=== PATIENT | male | born 1940 | race Caucasian/White ===

== ENCOUNTER 2017-12-08 18:49 | Emergency (ER) | payer OTHER ==
[~2017-12-08] VITALS: Ht 188 cm; Wt 108.9 kg
[~2017-12-08 18:49] MED LIST: ACID CONTROL75 MG PO; ADULT LOW DOSE81 MG PO; AMARYL4 MG PO; AMBIEN 5 MG TABL5 M1 PO; AMOXICILLIN 50500 MG PO; ASPIR 8181 MG PO; ASPIRIN EC81 M1 PO; ATORVASTATIN CA40 MG PO; CARDIZEM CD240 MG PO; CARDIZEM CD360 MG PO; CARVEDILOL25 MG PO; CLEOCIN HCL300 MG PO; COUMADIN 3 MG TA3 M1 PO; DILTIAZEM 24HR240 M1 PO; FISH OIL 1,001000 M1 PO; FISH OIL 1,001000 MG PO; FUROSEMIDE 40 M40 M1 PO; GEMFIBROZIL 60600 MG PO; GLUCOPHAGE1000 MG PO; HYDROCODON-ACE1 EAC7 PO; HYDROCODON-ACE1 EAC8 PO; IRON325 PO; LOSARTAN-HCTZ1 EACH PO; MAXZIDE-25 MG1 EACH PO; NOVOLIN 70100 UNIT/5 SUBQ; PERCOCET 5-3251 EACH PO; PLAVIX 75 MG TA75 M1 PO; POTASSIUM99 M1 PO; POTASSIUM99 MG PO; PROTONIX40 M2 PO; REGLAN 10 MG TA10 MG PO; STOOL SOFTENER250 MG PO; TRAMADOL 50 MG50 MG PO; TUMS PO; XARELTO20 MG PO; ZOFRAN ODT4 MG PO; ZOFRAN4 MG PO; ZOFRAN8 MG PO
[2017-12-08] MEDS ORDERED: DILTIAZEM 24HR120 M2 PO (19:24)
[2017-12-08] MEDS ORDERED: NOVOLOG100 UNIT/1 SUBQ (19:25)
[2017-12-08] MEDS ORDERED: COUMADIN 5 MG TA5 M1 PO (19:26)
[2017-12-08] MEDS ORDERED: PROTONIX40 M1 PO (19:26)
[2017-12-08 19:54] LABS: ABSOLUTE BASOPHILS 0.1 thou/uL (0.0-0.2); ABSOLUTE EOSINOPHILS 0.1 thou/uL (0.0-0.7); ABSOLUTE LYMPHOCYTES 1.2 thou/uL (0.8-5.3); ABSOLUTE MONOCYTES 0.6 thou/uL (0.0-1.2); ABSOLUTE NEUTROPHILS 6.1 thou/uL (1.6-8.1); BASOPHILS 0.8 %; EOSINOPHILS 1.8 %; HEMATOCRIT 39.1 % (42.0-52.0); HEMOGLOBIN 12.3 gm/dL (14.0-18.0); LYMPHOCYTES 14.3 %; MCH 25.2 pg (26.0-34.0); MCHC 31.4 g/dL (28.0-37.0); MCV 80.4 fL (80.0-100.0); MPV 8.9 fl. (7.2-11.1); NUCLEATED RBCS 0 /100WBC; PLATELET COUNT* 192 thou/uL (150-400); POLYS 75.1 %; RBC 4.86 mil/uL (4.50-6.00); RDW-CV 18.1 % (10.5-14.5); WBC 8.1 thou/uL (4.0-11.0)
[2017-12-08 20:06] LABS: PROTIME 66.2 Seconds (9.20-11.50)
[2017-12-08 20:16] LABS: CALCIUM 8.4 mg/dL (8.5-10.1); CREATININE 1.8 mg/dL (0.6-1.3); POTASSIUM 4.4 mmol/L (3.5-5.1)
[2017-12-08 20:21] LABS: ALBUMIN 3.6 g/dL (3.4-5.0); TOTAL BILIRUBIN 0.5 mg/dL (<0.1-1.0); TOTAL PROTEIN 7.6 g/dL (6.4-8.2)
[2017-12-08 21:08] LABS: URINE BILIRUBIN NEGATIVE (Negative); URINE BLOOD NEGATIVE (Negative); URINE CLARITY CLEAR; URINE COLOR YELLOW; URINE GLUCOSE-RANDOM 3+ (Negative); URINE KETONES NEGATIVE (Negative); URINE LEUKOCYTES-REFLEX NEGATIVE (Negative); URINE NITRITE-REFLEX NEGATIVE (Negative); URINE PROTEIN NEGATIVE (Negative); URINE SPECIFIC GRAVITY 1.015 (1.005-1.030); URINE UROBILINOGEN 0.2 E.U./dl (0.2-1.0)
[2017-12-08 22:15] VITALS: BP 122/80
--- NOTE | 2017-12-09 20:14 | EKG ---
[place] [address] ELECTROCARDIOGRAM REPORT Name: MATHIEU DUVALL Room: [facility]#: [id number] Admission: 12/08/17 Attend Phys: Discharge: 12/08/17 Date of : 36 Report #: [id number] THIS REPORT FOR: //name// [facility] ED Test Date: 2017-12-08 Test Time: 19:29:34 Pat Name: MATHIEU DUVALL Department: Room: Gender: M Clerk Television Production: SHAUN Chance : 1940 Requested By: Laura Hernandez Order Number: [id number] MD: Curt Armas Measurements Intervals [place] Rate: 93 P: CO: QRS: -14 QRSD: 90 T: 125 QT: 377 QTc: 469 Interpretive Statements Atrial fibrillation Probable anterior infarct, old Abnormal T, consider ischemia, lateral leads Compared to ECG 09/13/2017 09:56:48 ST (T wave) deviation no longer present Myocardial infarct finding still present T-wave abnormality still present Possible ischemia still present Electronically Signed On 12-09-2017 20:14:04 REHEATER HELPER by Curt Armas [email or web address] <ELECTRONICALLY SIGNED> By: Curt Armas MD, FACC 12/09/172013 28 28 Curt Armas MD, FAC /EPI
== END 2017-12-08 22:16 | disposition home or self-care (01) ==
LOC: M.ERS 18:49
PROVIDERS: Emergency Medicine
DX: R79.1 Abnormal coagulation profile (principal); N28.9 Disorder of kidney and ureter, unspecified; E11.9 Type 2 diabetes mellitus without complications; I10 Essential (primary) hypertension; E78.00 Pure hypercholesterolemia, unspecified; G51.0 Bell's palsy; Z90.49 Acquired absence of other specified parts of digestive tract; Z98.890 Other specified postprocedural states; Z87.891 Personal history of nicotine dependence; Z79.4 Long term (current) use of insulin

== ENCOUNTER 2018-10-27 12:26 | Inpatient (IN) | payer OTHER ==
[~2018-10-27] VITALS: Ht 177.8 cm; Wt 125.6 kg
[~2018-10-27 12:26] MED LIST changes: +COUMADIN 5 MG TA5 M1 PO; +DILTIAZEM 24HR120 M2 PO; +NOVOLOG100 UNIT/1 SUBQ; +PROTONIX40 M1 PO
[2018-10-27 12:27] VITALS: BP 116/58
[2018-10-27] MEDS ORDERED: COUMADIN 4 MG TA4 M1 PO (12:36)
[2018-10-27] MEDS ORDERED: KLOR-CON 1010 MEQ PO (12:36)
[2018-10-27] MEDS ORDERED: ASPIR 8181 MG PO (12:36)
[2018-10-27] MEDS ORDERED: LASIX 40 MG TAB40 M2 PO (12:37)
[2018-10-27] MEDS ORDERED: IRON325 PO (12:38)
[2018-10-27] MEDS ORDERED: COZAAR 25 MG TA25 M1 PO (12:38)
[2018-10-27] MEDS ORDERED: NAPROSYN500 MG PO (12:39)
[2018-10-27 12:53] LABS: ABSOLUTE BASOPHILS 0.1 thou/uL (0.0-0.2); ABSOLUTE EOSINOPHILS 0.2 thou/uL (0.0-0.7); ABSOLUTE LYMPHOCYTES 1.5 thou/uL (0.8-5.3); ABSOLUTE MONOCYTES 0.8 thou/uL (0.0-1.2); ABSOLUTE NEUTROPHILS 8.7 thou/uL (1.6-8.1); BASOPHILS 0.9 %; HEMATOCRIT 41.9 % (42.0-52.0); HEMOGLOBIN 13.3 gm/dL (14.0-18.0); LYMPHOCYTES 13.6 %; MCH 25.5 pg (26.0-34.0); MCHC 31.9 g/dL (28.0-37.0); MCV 79.9 fL (80.0-100.0); MONOCYTES 6.7 %; MPV 8.7 fl. (7.2-11.1); NUCLEATED RBCS 0 /100WBC; PLATELET COUNT* 206 thou/uL (150-400); POLYS 76.8 %; RBC 5.24 mil/uL (4.50-6.00); WBC 11.3 thou/uL (4.0-11.0)
[2018-10-27 13:02] LABS: INR 2.2; PROTIME 22.4 Seconds (9.20-11.50)
[2018-10-27 13:06] LABS: ANION GAP 12 mmol/L (7-16); BUN 20 mg/dL (7-18); CALCIUM 8.7 mg/dL (8.5-10.1); CHLORIDE 102 mmol/L (98-107); CO2 28 mmol/L (21-32); CREATININE 1.7 mg/dL (0.6-1.3); GLUCOSE 105 mg/dL (70-99); POTASSIUM 3.6 mmol/L (3.5-5.1); SODIUM 142 mmol/L (136-145)
[2018-10-27 13:14] LABS: ALBUMIN 3.3 g/dL (3.4-5.0); ALKALINE PHOSPHATASE 152 U/L (46-116); SGOT 18 U/L (15-37); SGPT 18 U/L (30-65); TOTAL BILIRUBIN 0.5 mg/dL (<0.1-1.0); TOTAL PROTEIN 7.8 g/dL (6.4-8.2); TROPONIN-I LEVEL <0.06 ng/mL (<0.06)
[2018-10-27 16:49] VITALS: BP 124/65
[2018-10-27 17:15] VITALS: BP 142/62
--- NOTE | 2018-10-27 18:18 | EKG ---
[place] [address] ELECTROCARDIOGRAM REPORT Name: MATHIEU DUVALL Room: [address] ADM IN .R.#: [id number] Admission: 10/27/18 Attend Phys: Gia Pacheco MD Discharge: Date of : 36 Report #: [id number] THIS REPORT FOR: //name// [facility] ED Test Date: 2018-10-27 Test Time: 12:40:21 Pat Name: MATHIEU DUVALL Department: Room: [facility] Gender: Quality Analyst/Technical Writer: Meron LOGAN : 1940 Requested By: Luis Falcon Order Number: [id number] MD: Curt Arams Measurements Intervals [place] Rate: 62 P: [place]: QRS: -13 QRSD: 95 T: 141 QT: 430 QTc: 437 Interpretive Statements Atrial fibrillation Delayed R-wave progression Abnormal T, consider ischemia, lateral leads Compared to ECG 12/08/2017 19:29:34 No significant changes Electronically Signed On 10-27-2018 18:17:46 STATISTICIAN MATHEMATICAL by Curt Armas [email or web address] <ELECTRONICALLY SIGNED> By: Curt Armas MD, FACC 10/27/18 1817 1240 1240 Curt Armas MD, FAC /EPI
[2018-10-27 20:00] VITALS: BP 154/70
[2018-10-27] MEDS ORDERED: DILTIAZEM HCL120 M1 PO (20:41)
[2018-10-27] MEDS ORDERED: LEVEMIR SUBQ (20:42)
[2018-10-27 23:07] VITALS: BP 131/47
[2018-10-28 03:30] VITALS: BP 125/56
[2018-10-28 05:17] LABS: HEMATOCRIT 39.4 % (42.0-52.0); HEMOGLOBIN 12.5 gm/dL (14.0-18.0); MCH 25.4 pg (26.0-34.0); MCHC 31.6 g/dL (28.0-37.0); MCV 80.4 fL (80.0-100.0); MPV 9.7 fl. (7.2-11.1); RBC 4.9 mil/uL (4.50-6.00); RDW-CV 18.9 % (10.5-14.5); WBC 9.6 thou/uL (4.0-11.0)
[2018-10-28 05:26] LABS: CALCIUM 8.5 mg/dL (8.5-10.1); CREATININE 1.6 mg/dL (0.6-1.3); MAGNESIUM 2.2 mg/dL (1.8-2.4); POTASSIUM 4.4 mmol/L (3.5-5.1)
[2018-10-28 05:27] LABS: PROTIME 20.7 Seconds (9.20-11.50)
[2018-10-28 08:40] VITALS: BP 128/70
[2018-10-28 12:16] VITALS: BP 139/52
[2018-10-28] MEDS ORDERED: KEPPRA 500 MG500 M1 PO (13:52)
[2018-10-28 15:05] VITALS: BP 139/52
[2018-10-28 15:30] VITALS: BP 139/52
[2018-10-28 15:58] VITALS: BP 114/69
--- NOTE | 2018-10-30 14:00 | CON ---
[address] [address] CONSULTATION Name: ELOINAMATHIEU Indira Room: [address] IN M.R.#: [id number] Admission: 10/27/18 Attend Phys: Gia Pacheco MD Discharge: 10/28/18 Date of : 36 Report #: [id number] THIS REPORT FOR: //name// CC: Gia Apple DATE OF SERVICE: 10/27/2018 HISTORY OF PRESENT ILLNESS: This is an 78-year-old male patient who was evaluated by me for a seizure. The patient is an extremely poor historian. He says he does not remember anything about the seizure. Family witnessed a seizure and it was apparently grand mal seizure. He is a diabetic. He does not know what his blood sugar was when it happened. One of the records indicates his blood sugar was 60. He had some trouble with oxygen desaturation, but he has stabilized. He may have had another seizure a few weeks ago, but he does not provide any history. REVIEW OF SYSTEMS: Positive for diabetes, hypertension, Drake's palsy, cataract surgery, gallbladder surgery, pancreatitis, vasectomy, heart palpitation and he is very hard of hearing. He had seizures, but how many of them were related to hypoglycemia is not clear. REVIEW OF SYSTEMS: A 14-point review of system was carried out, but this patient is not able to provide a very good 14-point review of system. He is apparently on a blood thinner, but I do not know any good indication from him. He just does not provide a very good history. His speech is not very good, but I suspect that is his baseline, that is the best I can get from him. He denies any new eye, ENT, cardiac, respiratory, GI, , musculoskeletal, constitutional, dermatological, hematological, psychiatric, throat, allergic symptom associated with present symptomatology. PAST MEDICAL HISTORY: Question of some seizure in the past. FAMILY HISTORY: Negative for any early age stroke. SOCIAL HISTORY: He says he does not drink any alcohol. PHYSICAL EXAMINATION: The patient's examination indicate he is alert. He is responsive. He can follow simple commands. His speech looks slurred, but I do not know what his baseline is. His memory and fund of knowledge is somewhat diminished, but then it is difficult to tell what his baseline is. His cranial nerve examination 2-12 was attempted. I do not think there is any gross abnormality. He moves all four extremities. Reflexes are absent and he did not have any position sense in the lower extremities, but his cooperation was not very good. His tone looks symmetrical. He does not have any cerebellar sign. He did not cooperate with the fundus examination. [place] [address] CONSULTATION Name: ELOINAMATHIEU Indira Room: [address] IN .#: [id number] Admission: 10/27/18 Attend Phys: Gia Pacheco MD Discharge: 10/28/18 Date of : 36 Report #: [id number] does not have any dysmorphic features of eyes, ears and face. His hearing is impaired, but vision looks intact. His pulses could not be felt in the lower extremities and there may be some edema. Heart sounds are difficult to hear. He does have rhonchi on both sides, but does not appear to be in more short of breath. His blood pressure is 124/65, respirations 14, pulse is 67 and oxygen saturation is 99%. He did have a CT scan of the head that did not show any acute changes, but does demonstrate small vessel disease. His MRI is not done yet. IMPRESSION: Difficult to tell in this patient. He does appear to have seizure, but that may be hypoglycemic seizure. He needs further workup since history is very poor. His MRI and EEG is pending. We will see that. We will monitor his blood sugar around the clock. RECOMMENDATIONS: 1. MRI. 2. MRA. 3. EEG. 4. Monitoring of the blood sugar around the clock. 5. Await this workup and then decide about the management further. <ELECTRONICALLY SIGNED> By: Augusto Blackman MD 10/30/18 1400 1800 [id number] Blackman MD /nt
--- NOTE | 2018-10-30 14:00 | EEG ---
[address] [address] EEG STUDY REPORT Name: MATHIEU DUVALL Room: [address] IN .R.#: [id number] Admission: 10/27/18 Attend Phys: Gia Pacheco MD Discharge: 10/28/18 Date of : 36 Report #: [id number] THIS REPORT FOR: //name// CC: Gia Apple DATE OF SERVICE: 10/28/2018 This patient is being evaluated for seizures. EEG was done by placing the electrodes by standard 10-20 system of electrode placement. Both referential and sequential montages were used for recording. Background activity in this patient's EEG is about 8-9 Hz and 30 microvolt. The patient went to sleep that is associated with bilateral symmetrical slowing and vertex sharp waves. Photic stimulation is unremarkable. Throughout the records, no active epileptiform activity was noticed. IMPRESSION: This patient's EEG is intermixed with theta range slowing on both sides. That is a nonspecific abnormality, which can occur with encephalopathy, effect of psychotropic medication, dementia, etc. Clinical correlation is recommended. <ELECTRONICALLY SIGNED> By: Augusto Blackman MD 10/30/18 1400 1009 1120Parantonio Blackman MD /nt
== END 2018-10-28 18:05 | disposition home or self-care (01) | DRG 100 ==
LOC: M.ERS 12:26 → M.TBA-ER 14:23 → M.2W 17:01
PROVIDERS: Emergency Medicine Emergency Medical Services; ADMIT Internal Medicine
DX: G40.409 Other generalized epilepsy and epileptic syndromes, not intractable, without status epilepticus (principal); G93.41 Metabolic encephalopathy; I12.9 Hypertensive chronic kidney disease with stage 1 through stage 4 chronic kidney disease, or unspecified chronic kidney disease; N18.3 Chronic kidney disease, stage 3 (moderate); G51.0 Bell's palsy; E78.00 Pure hypercholesterolemia, unspecified; E11.22 Type 2 diabetes mellitus with diabetic chronic kidney disease; H91.91 Unspecified hearing loss, right ear; Z86.73 Personal history of transient ischemic attack (TIA), and cerebral infarction without residual deficits; Z90.49 Acquired absence of other specified parts of digestive tract; Z79.01 Long term (current) use of anticoagulants; Z79.82 Long term (current) use of aspirin; Z79.4 Long term (current) use of insulin; Z79.899 Other long term (current) drug therapy; Z83.3 Family history of diabetes mellitus

== ENCOUNTER 2019-01-25 14:32 | Inpatient (IN) | payer OTHER ==
[~2019-01-25] VITALS: Ht 188 cm; Wt 128.7 kg
[~2019-01-25 14:32] MED LIST changes: +COUMADIN 4 MG TA4 M1 PO; +COZAAR 25 MG TA25 M1 PO; +DILTIAZEM HCL120 M1 PO; +KEPPRA 500 MG500 M1 PO; +KLOR-CON 1010 MEQ PO; +LASIX 40 MG TAB40 M2 PO; +LEVEMIR SUBQ; +NAPROSYN500 MG PO
[2019-01-25 16:45] VITALS: BP 142/66
[2019-01-25 18:29] LABS: ABSOLUTE BASOPHILS 0.1 thou/uL (0.0-0.2); ABSOLUTE EOSINOPHILS 0.3 thou/uL (0.0-0.7); ABSOLUTE MONOCYTES 0.8 thou/uL (0.0-1.2); ABSOLUTE NEUTROPHILS 6.7 thou/uL (1.6-8.1); BASOPHILS 0.6 %; HEMATOCRIT 36.6 % (42.0-52.0); HEMOGLOBIN 11.7 gm/dL (14.0-18.0); LYMPHOCYTES 11.6 %; MCH 24.6 pg (26.0-34.0); MCV 77.1 fL (80.0-100.0); MONOCYTES 9.4 %; MPV 8.9 fl. (7.2-11.1); NUCLEATED RBCS 0 /100WBC; PLATELET COUNT* 231 thou/uL (150-400); POLYS 75.4 %; RBC 4.75 mil/uL (4.50-6.00); RDW-CV 18.2 % (10.5-14.5); WBC 8.8 thou/uL (4.0-11.0)
[2019-01-25 18:35] LABS: INR 2.1; PROTIME 21.1 Seconds (9.20-11.50)
[2019-01-25 18:40] LABS: ALBUMIN 3.1 g/dL (3.4-5.0); CALCIUM 8.5 mg/dL (8.5-10.1); MAGNESIUM 1.9 mg/dL (1.8-2.4); POTASSIUM 4.3 mmol/L (3.5-5.1); TOTAL BILIRUBIN 0.6 mg/dL (<0.1-1.0); TOTAL PROTEIN 7.8 g/dL (6.4-8.2)
[2019-01-25 20:00] VITALS: BP 138/52
[2019-01-26] VITALS: BP 142/77
[2019-01-26 05:00] VITALS: BP 109/67
[2019-01-26 05:03] LABS: ABSOLUTE BASOPHILS 0.1 thou/uL (0.0-0.2); ABSOLUTE EOSINOPHILS 0.3 thou/uL (0.0-0.7); ABSOLUTE LYMPHOCYTES 0.9 thou/uL (0.8-5.3); ABSOLUTE MONOCYTES 0.9 thou/uL (0.0-1.2); ABSOLUTE NEUTROPHILS 6.3 thou/uL (1.6-8.1); EOSINOPHILS 3.3 %; HEMATOCRIT 35.5 % (42.0-52.0); HEMOGLOBIN 11.4 gm/dL (14.0-18.0); LYMPHOCYTES 11.1 %; MCH 24.5 pg (26.0-34.0); MCHC 32.1 g/dL (28.0-37.0); MCV 76.4 fL (80.0-100.0); MONOCYTES 10.3 %; NUCLEATED RBCS 0 /100WBC; PLATELET COUNT* 237 thou/uL (150-400); POLYS 74.3 %; RBC 4.65 mil/uL (4.50-6.00); RDW-CV 18.3 % (10.5-14.5); WBC 8.5 thou/uL (4.0-11.0)
[2019-01-26 05:29] LABS: CALCIUM 8.5 mg/dL (8.5-10.1); CREATININE 1.7 mg/dL (0.6-1.3)
[2019-01-26 05:33] LABS: % SATURATION 7 % (20-39); IRON 22 ug/dL (50-175)
[2019-01-26 06:18] LABS: URINE BILIRUBIN NEGATIVE (Negative); URINE BLOOD TRACE (Negative); URINE CLARITY CLEAR; URINE COLOR YELLOW; URINE GLUCOSE-RANDOM NEGATIVE (Negative); URINE KETONES NEGATIVE (Negative); URINE LEUKOCYTES-REFLEX NEGATIVE (Negative); URINE NITRITE-REFLEX NEGATIVE (Negative); URINE PROTEIN NEGATIVE (Negative); URINE UROBILINOGEN 0.2 E.U./dl (0.2-1.0)
[2019-01-26 08:00] VITALS: BP 129/69
[2019-01-26 16:00] VITALS: BP 99/37
[2019-01-26 20:00] VITALS: BP 128/69
[2019-01-27] VITALS: BP 121/54
[2019-01-27 02:07] LABS: GLYCOHEMOGLOBIN (HGB A1C) 8.6 % (4.8-5.6)
[2019-01-27 04:00] VITALS: BP 111/55
[2019-01-27 04:52] LABS: ABSOLUTE BASOPHILS 0.1 thou/uL (0.0-0.2); ABSOLUTE EOSINOPHILS 0.4 thou/uL (0.0-0.7); ABSOLUTE LYMPHOCYTES 1.1 thou/uL (0.8-5.3); ABSOLUTE MONOCYTES 0.8 thou/uL (0.0-1.2); BASOPHILS 0.9 %; EOSINOPHILS 5.2 %; HEMOGLOBIN 11.3 gm/dL (14.0-18.0); LYMPHOCYTES 14.8 %; MCH 24.8 pg (26.0-34.0); MCHC 32.4 g/dL (28.0-37.0); MCV 76.7 fL (80.0-100.0); MONOCYTES 11.4 %; MPV 8.6 fl. (7.2-11.1); NUCLEATED RBCS 0 /100WBC; PLATELET COUNT* 221 thou/uL (150-400); POLYS 67.7 %; RBC 4.56 mil/uL (4.50-6.00); RDW-CV 18.2 % (10.5-14.5); WBC 7.4 thou/uL (4.0-11.0)
[2019-01-27 05:15] LABS: CALCIUM 8.3 mg/dL (8.5-10.1); POTASSIUM 3.9 mmol/L (3.5-5.1)
[2019-01-27 05:22] LABS: CREATININE 1.5 mg/dL (0.6-1.3)
[2019-01-27 08:00] VITALS: BP 120/66
[2019-01-27] MEDS ORDERED: KEFLEX500 M1 PO (09:39)
[2019-01-27 16:34] LABS: MAGNESIUM 2.1 mg/dL (1.8-2.4); PHOSPHORUS* 3.4 mg/dL (2.5-4.9)
[2019-01-27 20:00] VITALS: BP 113/55
[2019-01-28] VITALS: BP 118/50
[2019-01-28 04:00] VITALS: BP 131/67
[2019-01-28 08:00] VITALS: BP 153/79
[2019-01-28 12:00] VITALS: BP 134/63
[2019-01-28 16:00] VITALS: BP 123/48
[2019-01-28 20:00] VITALS: BP 136/74
[2019-01-29] VITALS: BP 107/63
[2019-01-29 04:00] VITALS: BP 127/65
--- NOTE | 2019-01-29 07:43 | CON ---
[address] [address] CONSULTATION Name: MATHIEU DUVALL Room: [address] IN M.R.#: [id number] Admission: 01/25/19 Attend Phys: Sergio Stevens MD Discharge: Date of : 36 Report #: [id number] THIS REPORT FOR: //name// CC: Renita Stevens DATE OF SERVICE: 01/26/2019 INFECTIOUS DISEASE CONSULTATION ATTENDING PHYSICIAN: Dr. Stevens. REASON FOR EVALUATION: Bilateral lower extremity inflammatory eruption, likely multifactorial with a component of skin and soft tissue infection with cellulitis, also has multiple wounds that are likely focally infected as well. HISTORY OF PRESENT ILLNESS: Chart reviewed, patient examined. This is an 78-year-old, with extensive medical history, diabetes mellitus type 2, has been complicated by vasculopathy, has known previous strokes, seizure disorder, cardiomyopathy, who is not a great historian. He does state issues with his legs including swelling, often has pain dating back several years, most recently in October 2018, developed multiple sites of wound. 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 Denies significant pulmonary or gastrointestinal related complaints. His appetite has been somewhat marginal, not reporting fevers, empirically started on antimicrobials with ceftriaxone. ALLERGIES: None known. MEDICATIONS: Include ferrous sulfate, zinc, multivitamin, losartan, aspirin, warfarin, pantoprazole, insulin, ascorbic acid, levetiracetam, diltiazem, atorvastatin, ceftriaxone, furosemide. 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 SOCIAL HISTORY: Nonsmoker, no ethanol. FAMILY HISTORY: Noncontributory. REVIEW OF SYSTEMS: Otherwise, unremarkable 10-point review of systems except noted in the [place] [address] CONSULTATION Name: MATHIEU DUVALL Room: [address]#: [id number] Admission: 01/25/19 Attend Phys: Sergio Stevens MD Discharge: Date of : 36 Report #: [id number] PHYSICAL EXAMINATION: GENERAL: He is in moderate distress at this point. He appears to have some hearing deficits. Speech has been impaired as well. He is chronically ill appearing, undernourished, unkempt. VITAL SIGNS: Temperature 97.6, pulse 85, respirations 18, blood pressure 129/69. SKIN: Warm, dry. HEENT: Extensive malave. Normocephalic. Extraocular muscles intact. NECK: Supple. LUNGS: Diminished breath sounds. Few scattered crackles at the bases. HEART: Regular, does have a soft systolic murmur. It is distant. ABDOMEN: Obese, soft, nontender. There are no peritoneal signs. EXTREMITIES: Bilateral lower extremities have multiple lesions consistent with picking as was described many of eschars or excoriation. There is moderate degree of inflammation noted throughout the lower extremities to below the knee, somewhat diminished palpable pulses. He is tender to palpation over the areas. There is another larger wound on the right lower extremity. GENITOURINARY: Deferred. RECTAL: Deferred. LABORATORY DATA: Blood cultures sterile thus far. Arterial Doppler, monophasic waveforms are present in the right lower extremity in the mid superficial femoral artery distally. There is blood flow to the ankle via the dorsalis pedis and posterior tibial artery. Urinalysis unremarkable. No proteinuria. Electrolytes: Sodium 142, potassium 4.0, chloride 105, bicarbonate is 30, anion gap of 7, BUN and creatinine 22 and 1.7. CBC: White count of 8.5, H and H 11.4 and 35.5 and platelets of 237. NT-pro brain natriuretic peptide elevated at 2300. TSH 1.824. Lactic acid 1.3. PT of 21.1, INR of 2.1. Liver functions, alkaline phosphatase of 151. Total protein 7.8, albumin of 3.1. Chest x-ray, no acute process. ASSESSMENT: Bilateral lower extremity inflammatory eruption, certainly can exclude infectious component. I do not think that is the totality of it, has venous stasis insufficiency with dermatitis, has multiple ulcers certainly at risk with his habitual picking. Continue the ceftriaxone. Covering and compressing the wounds seem to give him some benefit, noted vascular is watchful waiting type approach. At this point, I think, try to optimize his nutritional care. Monitor expectantly for other types of complications as related to hospitalization including pneumonitis. Start incentive spirometry. <ELECTRONICALLY SIGNED> By: Toño Ivory MD 01/29/19 0743 1241 0523Jocoby Ivory MD /nt
[2019-01-29 08:11] VITALS: BP 122/73
[2019-01-29 10:50] LABS: CALCIUM 8.3 mg/dL (8.5-10.1); CREATININE 1.4 mg/dL (0.6-1.3); POTASSIUM 4.3 mmol/L (3.5-5.1)
[2019-01-29 12:17] VITALS: BP 130/72
[2019-01-29 16:57] VITALS: BP 128/75
--- NOTE | 2019-01-29 17:05 | 2DMMODE ---
[place] [address] 2 D/M-MODE ECHOCARDIOGRAM Name: ELOINAMATHIEU Indira Room: [address] IN .R.#: [id number] Admission: 01/25/19 Attend Phys: Sergio Stevens MD Discharge: Date of : 36 Date of Service: 01/29/19 1705 Report #: [id number] THIS REPORT FOR: //name// APPROVED REPORT Study performed: 01/29/2019 14:06:39 EXAM: Comprehensive 2D, Doppler, and color-flow Echocardiogram Patient Location: Bedside BSA: 2.54 HR: 74 bpm BP: 130/72 mmHg Other Information Study Quality: Fair Indications Aortic Valve Disease Congestive Heart Failure 2D Dimensions IVSd: 17.75 (7-11mm) LVOT Diam: 16.23 (18-24mm) LVDd: 41.31 mm PWd: 11.29 (7-11mm) Ascending Ao: 34.50 (22-36mm) LVDs: 28.06 (25-40mm) Aortic Root: 28.23 mm Volumes Left Atrial Volume (Systole) LA ESV Index: 29.80 mL/m2 Aortic Valve AoV Peak Renzo.: 3.96 m/s AO Peak Gr.: 62.73 mmHg LVOT Max P.57 mmHg AO Mean Gr.: 38.67 mmHg LVOT Mean P.27 mmHg LVOT Max V: 0.80 m/s AO V2 VTI: 82.58 cm LVOT Mean V: 0.52 m/s JERICA (VTI): 0.47 cm2 LVOT V1 VTI: 18.83 cm Mitral Valve MV Mean Gr.: 3.12 mmHg E/A Ratio: 4.97 MV Decel. Time: 207.19 ms MV E Max Renzo.: 1.43 m/s MV PHT: 60.09 [place] [address] 2 D/M-MODE ECHOCARDIOGRAM Name: MATHIEU DUVALL Room: [address] IN [facility]#: [id number] Admission: 01/25/19 Attend Phys: Sergio Stevens MD Discharge: Date of : 36 Date of Service: 01/29/19 1705 Report #: [id number] MVA (PHT): 3.66 cm2 TDI E/Lateral E': 28.60 E/Medial E': 17.88 Medial E' Renzo.: 0.08 m/s Lateral E' Renzo.: 0.05 m/s Pulmonary Valve PV Peak Renzo.: 0.95 m/s PV Peak Gr.: 3.64 mmHg Tricuspid Valve RAP Estimate: 20.00 mmHg TR Peak Gr.: 56.19 mmHg RVSP: 76.19 mmHg PA Pressure: 76.19 mmHg Left Ventricle The left ventricle is normal size. There is normal LV segmental wall motion. Mild concentric left ventricular hypertrophy. Left ventricular systolic function is normal. The left ventricular ejection fraction is within the normal range. LVEF is 60-65%. Right Ventricle The right ventricle is normal size. The right ventricular systolic function is normal. Atria Left atrium is mildly dilated. The right atrium size is normal. Aortic Valve The Aortic valve is sclerotic. No aortic regurgitation is present. Moderate to severe aortic stenosis. Mitral Valve There is mitral annular calcification. Mitral valve leaflets are mildly thickened. Mild mitral regurgitation. Borderline mitral stenosis. Tricuspid Valve The tricuspid valve is normal in structure. Moderate tricuspid regurgitation. estimate pa pressure 60 mm hg Pulmonic Valve Pulmonic valve is not well visualized. There is no pulmon[place] [address] 2 D/M-MODE ECHOCARDIOGRAM Name: MATHIEU DUVALL Room: [address]#: [id number] Admission: 01/25/19 Attend Phys: Sergio Stevens MD Discharge: Date of : 36 Date of Service: 01/29/19 1705 Report #: [id number] Great Vessels The aortic root is normal in size. IVC is dilated. Pericardium There is no pericardial effusion. <Conclusion> Mild concentric left ventricular hypertrophy. LVEF is 60-65%. Left atrium is mildly dilated. Moderate to severe aortic stenosis. Mild mitral regurgitation. Moderate tricuspid regurgitation. estimate pa pressure 60 mm hg <ELECTRONICALLY SIGNED> By: Cameron Ballard MD, FACC 01/29/191704 04 04 Cameron Ballard MD, FACC /INF
[2019-01-29 19:15] VITALS: BP 120/65
[2019-01-30] VITALS (20 sets, daily range): BP systolic 23–151; BP diastolic 63–83
[2019-01-30 05:03] LABS: CALCIUM 8.5 mg/dL (8.5-10.1); CREATININE 1.5 mg/dL (0.6-1.3); POTASSIUM 4.3 mmol/L (3.5-5.1)
[2019-01-30 05:04] LABS: INR 1.5; PROTIME 14.9 Seconds (9.20-11.50)
--- NOTE | 2019-01-30 17:25 | CON ---
[address] [address] CONSULTATION Name: MATHIEU DUVALL Room: [address] IN M.R.#: [id number] Admission: 01/25/19 Attend Phys: Sergio Stevens MD Discharge: Date of : 36 Report #: [id number] THIS REPORT FOR: //name// CC: Renita Betts DATE OF SERVICE: 01/28/2019 HISTORY OF PRENSENT ILLNESS: The patient is an 78-year-old single white male who I was asked to see in the hospital today after he was noted to have a wide complex tachycardia. The patient apparently was seen by my partner, Dr. Armas, back in 2012. He was noted to be in atrial fibrillation. Dr. Armas recommended anticoagulation with Xarelto and rate control with diltiazem. The patient has a long history of hypertension, diabetes. He was seen by Dr. Davis here at [facility] in 2017 after he had a seizure. He was noted to be in atrial fibrillation at that time. The patient apparently has been noncompliant, has not been following up in the office and had refused anticoagulation. He was actually just admitted here to [facility] on 01/25 from his primary care physician's office. He had redness of his legs with ulcers and felt to have cellulitis. He was admitted for treatment. On the monitor, the patient noted to have wide complex tachycardia. I was asked to see him for further evaluation and treatment. He denies a history of chest pain, shortness of breath, palpitations. He has been on warfarin. Denies any bleeding. PAST MEDICAL HISTORY: Significant for cholecystectomy, hypertension, diabetes. MEDICATIONS: On admission included insulin, warfarin, aspirin, potassium, Lasix, losartan, diltiazem, insulin, metformin. FAMILY HISTORY: His mother had heart disease. SOCIAL HISTORY: He is , lives with a daughter. Ambulates with a walker. He quit smoking years ago. Does drink alcohol occasionally. REVIEW OF SYSTEMS: He is overweight, being 6 feet 2 inches, weighing 290 pounds. He has a history of Drake palsy. No history of asthma, peptic ulcer disease, liver disease, kidney disease, cancer, psychiatric illness. PHYSICAL EXAMINATION: GENERAL: Revealed a large, elderly male, lying in bed, appeared in no acute distress. VITAL SIGNS: He had a blood pressure of 150/80, pulse 80. He is afebrile. HEENT: He is anicteric. Conjunctivae pink. Mucous membranes are dry. NECK: Veins cannot be assessed due to large malave. CHEST: [place] [address] CONSULTATION Name: MATHIEU DUVALL Room: [address] IN [facility]#: [id number] Admission: 01/25/19 Attend Phys: Sergio Stevens MD Discharge: Date of : 36 Report #: [id number] CARDIOVASCULAR: Irregular rhythm, grade 2 systolic ejection murmur. ABDOMEN: Obese. EXTREMITIES: Had trace edema. SKIN: Cool and dry. NEUROLOGIC: Nonfocal. The patient actually had an echocardiogram in 2016 that showed ejection fraction 60%, left ventricular hypertrophy, moderate aortic stenosis with a peak gradient across the aortic valve at that time of 40 mmHg. His x-rays, the patient had portable chest x-ray on admission, 01/25, that showed cardiomegaly, no other acute abnormalities. Lower extremity arterial study after his admission showed arterial occlusive disease, monophasic waveforms with occlusion of the left posterior tibial artery. CT scan of the head without contrast in October after a seizure showed no acute abnormality, small vessel disease and atrophy. LABORATORY DATA: Sodium 142, creatinine 1.5, glucose 69. His BNP 2302. Previous LDL 132, TSH 1.8. His INR is 2.1. His hemoglobin 11.3. IMPRESSION AND RECOMMENDATIONS: 1. Atrial fibrillation. Noted to be chronic. Rate controlled with a calcium venu. I would continue anticoagulation, maintain an INR of 2-3. 2. Episode of nonsustained ventricular tachycardia. Noted to be 10 beats. We would not recommend treatment at this time. No history of syncope or cardiomyopathy. 3. Hypertension. Blood pressure appears controlled on an ARB and calcium venu. 4. Diabetes. 5. Obesity. 6. Cellulitis. The patient on antibiotics. 7. Peripheral arterial disease. 8. Chronic kidney disease. <ELECTRONICALLY SIGNED> By: Cameron Ballard MD, FACC 01/30/19 1725 1035 [id number] javier Ballard MD, FACC /nt
[2019-01-31 04:00] VITALS: BP 123/66
[2019-01-31 05:41] LABS: ABSOLUTE BASOPHILS 0.1 thou/uL (0.0-0.2); ABSOLUTE EOSINOPHILS 0.3 thou/uL (0.0-0.7); ABSOLUTE MONOCYTES 0.9 thou/uL (0.0-1.2); ABSOLUTE NEUTROPHILS 6.5 thou/uL (1.6-8.1); BASOPHILS 0.8 %; HEMOGLOBIN 11.3 gm/dL (14.0-18.0); LYMPHOCYTES 11.8 %; MCH 24.4 pg (26.0-34.0); MCHC 31.5 g/dL (28.0-37.0); MCV 77.6 fL (80.0-100.0); MONOCYTES 9.8 %; MPV 8.7 fl. (7.2-11.1); NUCLEATED RBCS 0 /100WBC; PLATELET COUNT* 237 thou/uL (150-400); POLYS 73.6 %; RBC 4.64 mil/uL (4.50-6.00); RDW-CV 18.3 % (10.5-14.5); WBC 8.8 thou/uL (4.0-11.0)
[2019-01-31 06:02] LABS: CALCIUM 8.7 mg/dL (8.5-10.1); CREATININE 1.2 mg/dL (0.6-1.3); POTASSIUM 4.2 mmol/L (3.5-5.1)
[2019-01-31 08:00] VITALS: BP 131/78
--- NOTE | 2019-01-31 08:06 | OP ---
[address] [address] OPERATIVE REPORT Name: ELOINAMATHIEU L Room: [address] IN .R.#: [id number] Admission: 01/25/19 Attend Phys: Sergio Stevens MD Discharge: Date of : 36 Report #: [id number] THIS REPORT FOR: //name// CC: Renita Stevens DATE OF SERVICE: 01/30/2019 PREOPERATIVE DIAGNOSIS: Critical left lower extremity ischemia. POSTOPERATIVE DIAGNOSIS: Critical left lower extremity ischemia. OPERATION: 1. Ultrasound-guided access to the right common femoral artery. 2. Aortoiliofemoral angiogram. 3. Third order selective left lower extremity angiogram. 4. Left superficial femoral and popliteal artery angioplasty. 5. Left anterior tibial artery angioplasty. SURGEON: Christiano Christina DO. VOICE SYSTEMS ENGINEER: ____ PGY2 and DANTE Domingo. ANESTHESIA: Sedation with local. ESTIMATED BLOOD LOSS: 25 mL. FLUIDS: 100 of crystalloid. URINE OUTPUT: None. SPECIMENS: None. COMPLICATIONS: None. FINDINGS: He had right common femoral artery with some mild posterior wall plaque, but suitable for access on ultrasound. Initial aortogram demonstrated patent bilateral renal arteries, infrarenal aorta, bilateral common internal and external iliac arteries were patent with just some mild atherosclerotic disease. Patent left common femoral, deep femoral artery without significant stenosis. He had moderate to moderately severe kind of diffuse stenosis of the left SFA with a focal high-grade stenosis in the mid portion. The left popliteal artery was patent with some moderate to moderately severe atherosclerotic disease. His anterior tibial was the main runoff into the foot. 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 His anterior tibial artery had moderately severe stenosis in the proximal portion just past its origin. [address] [address] OPERATIVE REPORT Name: MATHIEU DUVALL Room: [address]#: [id number] Admission: 01/25/19 Attend Phys: Sergio Stevens MD Discharge: Date of : 38 Report #: [id number] Following angioplasty of the SFA, popliteal and anterior tibial artery had much improved inline flow into the foot with some minimal residual stenosis. CLINICAL HISTORY: The patient is an 78-year-old man with known severe peripheral vascular disease and left lower extremity wounds. He is in need of revascularization for limb salvage and wound healing. DETAILS OF PROCEDURE: After informed consent was obtained, the patient taken to the angio suite and placed on the angio bed in supine position. He was administered sedation by the nurse at my discretion. This was for a total of 45 minutes monitoring all vital signs appropriately. Using ultrasound guidance, the right common femoral artery was identified and was accessed with micropuncture needle. These ultrasound images were preserved. Using Seldinger technique, a microwire and microsheath were placed, ultimately upsized to a 6-Ghanaian sheath over a J-wire. Exchanged out for a flush catheter and a Bentson wire passed into the infrarenal aorta and performed aortoiliofemoral angiogram with findings noted above. Obtained up and over access across the bifurcation, positioned the catheter in the left common femoral artery and performed selective left lower extremity angiogram with findings noted above. At this point, I administered 8000 units of intravenous heparin and exchanged out for a Glidewire Advantage and 6-Ghanaian up and over sheath. I used a combination of Glidewire Advantage and seeker catheter and I was able to navigate the wire down into the true lumen into the anterior tibial artery. Followup imaging confirmed intraluminal position. At this point, I then serial angioplastied the SFA and popliteal artery in its entirety with a 5 mm Ultraverse balloon through multiple inflations for 2 minutes at a time. Following this, I then angioplastied the anterior tibial artery with a 3 mm Ultraverse balloon. Following this, I then performed completion angiogram, which demonstrated excellent inline flow through the anterior tibial artery into the foot. Satisfied with the result, the wire and sheath were backed into the right external iliac artery, exchanged out for a short 6-Ghanaian sheath. I deployed a 6-Ghanaian Mynx closure device in standard fashion, partially reversed the heparin with 50 mg of protamine. Manual pressure was held for 5 minutes. Once hemostasis was ensured, sterile dressing was applied. All sponge, sharp and instrument counts were reported as correct x 2. He tolerated the procedure well and was transferred back to his room in stable condition. <ELECTRONICALLY SIGNED> By: Christiano Christina DO 01/31/19 0806 0924 [id number] Christina DO /nt
[2019-01-31 08:07] LABS: CHOLESTEROL 76 mg/dL (<200); HDL CHOLESTEROL 30 mg/dL (>40); LDL CHOLESTEROL 30 mg/dL (<100); TC:HDL 2.5 Ratio (Not establshd); TRIGLYCERIDE 83 mg/dL (<150); VLDL 17 mg/dL (<40)
[2019-01-31 08:15] LABS: SERUM ASSESSMENT Clear
[2019-01-31 12:00] VITALS: BP 134/76
[2019-01-31 16:00] VITALS: BP 119/87
== END 2019-01-31 18:38 | disposition home health service (06) | DRG 628 ==
LOC: M.2W 14:32
PROVIDERS: Internal Medicine; Internal Medicine Cardiovascular Disease; Physician Assistant Surgical; Registered Nurse; ADMIT Family Medicine
DX: E11.622 Type 2 diabetes mellitus with other skin ulcer (principal); I50.33 Acute on chronic diastolic (congestive) heart failure; J96.90 Respiratory failure, unspecified, unspecified whether with hypoxia or hypercapnia; L03.116 Cellulitis of left lower limb; I42.9 Cardiomyopathy, unspecified; I47.2 Ventricular tachycardia; I13.0 Hypertensive heart and chronic kidney disease with heart failure and stage 1 through stage 4 chronic kidney disease, or unspecified chronic kidney disease; L03.115 Cellulitis of right lower limb; N17.0 Acute kidney failure with tubular necrosis; E11.51 Type 2 diabetes mellitus with diabetic peripheral angiopathy without gangrene; E78.00 Pure hypercholesterolemia, unspecified; I87.2 Venous insufficiency (chronic) (peripheral); I70.213 Atherosclerosis of native arteries of extremities with intermittent claudication, bilateral legs; I48.2 Chronic atrial fibrillation; G51.0 Bell's palsy; I35.0 Nonrheumatic aortic (valve) stenosis; E11.65 Type 2 diabetes mellitus with hyperglycemia; L98.499 Non-pressure chronic ulcer of skin of other sites with unspecified severity; D50.9 Iron deficiency anemia, unspecified; G40.909 Epilepsy, unspecified, not intractable, without status epilepticus; H91.91 Unspecified hearing loss, right ear; N18.3 Chronic kidney disease, stage 3 (moderate); E11.22 Type 2 diabetes mellitus with diabetic chronic kidney disease; E66.9 Obesity, unspecified; Z68.36 Body mass index [BMI] 36.0-36.9, adult; Z86.73 Personal history of transient ischemic attack (TIA), and cerebral infarction without residual deficits; Z98.42 Cataract extraction status, left eye; Z98.41 Cataract extraction status, right eye; Z87.891 Personal history of nicotine dependence; Z90.49 Acquired absence of other specified parts of digestive tract; Z79.01 Long term (current) use of anticoagulants; Z79.82 Long term (current) use of aspirin; Z79.899 Other long term (current) drug therapy; Z82.49 Family history of ischemic heart disease and other diseases of the circulatory system; Z83.3 Family history of diabetes mellitus; Z28.21 Immunization not carried out because of patient refusal

== ENCOUNTER → 2019-02-23 | Outpatient (CLI) | payer OTHER ==
[~2019-02-23] MED LIST changes: +KEFLEX500 M1 PO
== END ==
LOC: M.RAD 02-22 14:00
DX: R13.12 Dysphagia, oropharyngeal phase (principal)

== ENCOUNTER 2019-07-20 19:51 | Emergency (ER) | payer OTHER ==
[~2019-07-20] VITALS: Ht 188 cm; Wt 122.9 kg
[2019-07-20 20:00] VITALS: BP 136/58
[2019-07-20] MEDS ORDERED: MELATONIN1 MG PO (20:06)
== END 2019-07-20 20:20 | disposition home or self-care (01) ==
LOC: M.ERS 19:51
DX: E11.65 Type 2 diabetes mellitus with hyperglycemia (principal); I10 Essential (primary) hypertension; G51.0 Bell's palsy; E78.00 Pure hypercholesterolemia, unspecified; Z90.49 Acquired absence of other specified parts of digestive tract; Z98.52 Vasectomy status; Z87.891 Personal history of nicotine dependence

== ENCOUNTER 2019-12-04 15:15 | Inpatient (IN) | payer MEDICARE ==
[~2019-12-04] VITALS: Ht 182.9 cm; Wt 138.3 kg
[~2019-12-04 15:15] MED LIST changes: +MELATONIN1 MG PO
[2019-12-04 15:20] VITALS: BP 123/68
[2019-12-04 15:54] LABS: PCO2 32.6 mmHg (35.0-45.0); pH 7.371 (7.340-7.450)
[2019-12-04 15:54] LABS: ABSOLUTE BASOPHILS 0.1 thou/uL (0.0-0.2); ABSOLUTE LYMPHOCYTES 0.7 thou/uL (0.8-5.3); ABSOLUTE MONOCYTES 0.8 thou/uL (0.0-1.2); ABSOLUTE NEUTROPHILS 7.2 thou/uL (1.6-8.1); BASOPHILS 0.7 %; EOSINOPHILS 0.1 %; HEMATOCRIT 26.1 % (42.0-52.0); HEMOGLOBIN 7.8 gm/dL (14.0-18.0); LYMPHOCYTES 8.1 %; MCH 18.9 pg (26.0-34.0); MONOCYTES 9.4 %; MPV 9.4 fl. (7.2-11.1); NUCLEATED RBCS 2 /100WBC; PLATELET COUNT* 244 thou/uL (150-400); POLYS 81.7 %; RBC 4.15 mil/uL (4.50-6.00); RDW-CV 20.2 % (10.5-14.5); WBC 8.8 thou/uL (4.0-11.0)
[2019-12-04 15:57] LABS: PO2 159.3 mmHg (75.0-100.0)
[2019-12-04 16:05] LABS: CALCIUM 8.4 mg/dL (8.5-10.1); POTASSIUM 5.8 mmol/L (3.5-5.1)
[2019-12-04 16:19] LABS: ALBUMIN 3.4 g/dL (3.4-5.0); MAGNESIUM 2.2 mg/dL (1.8-2.4); TOTAL BILIRUBIN 0.6 mg/dL (<0.1-1.0); TOTAL PROTEIN 7.8 g/dL (6.4-8.2)
[2019-12-04 17:27] LABS: HYPOCHROMASIA 3+; MICROCYTES 3+; OVALOCYTES 1+; PLATELET ESTIMATE ADEQUATE; POLYCHROMASIA Occasional
[2019-12-04 17:28] LABS: ANISOCYTOSIS 2+; TARGET CELLS Occasional
[2019-12-04 18:32] LABS: APTT 44.3 Seconds (25.0-31.3); PROTIME 130.2 Seconds (9.20-11.50)
[2019-12-04 20:30] VITALS: BP 133/78
[2019-12-04 21:38] VITALS: BP 133/62
[2019-12-04 22:10] LABS: HEMATOCRIT 26.3 % (42.0-52.0); HEMOGLOBIN 7.8 gm/dL (14.0-18.0)
[2019-12-04 22:12] LABS: CALCIUM 8.1 mg/dL (8.5-10.1); CREATININE 2.9 mg/dL (0.6-1.3); POTASSIUM 5.8 mmol/L (3.5-5.1)
[2019-12-04 23:39] LABS: CALCIUM 8.2 mg/dL (8.5-10.1); CREATININE 2.8 mg/dL (0.6-1.3); POTASSIUM 5.5 mmol/L (3.5-5.1)
[2019-12-05] VITALS: BP 132/66
[2019-12-05 02:05] LABS: URINE BILIRUBIN NEGATIVE (Negative); URINE BLOOD 3+ (Negative); URINE CLARITY SL CLOUDY; URINE COLOR YELLOW; URINE GLUCOSE-RANDOM NEGATIVE (Negative); URINE KETONES TRACE (Negative); URINE LEUKOCYTES-REFLEX NEGATIVE (Negative); URINE NITRITE-REFLEX NEGATIVE (Negative); URINE PROTEIN 3+ (Negative); URINE SPECIFIC GRAVITY >= 1.030 (1.005-1.030); URINE UROBILINOGEN 0.2 E.U./dl (0.2-1.0)
[2019-12-05 02:46] LABS: URINE POTASSIUM-RANDOM 54.1 mmol/L
[2019-12-05 03:17] LABS: CASTS None Seen /LPF (None Seen); SQUAMOUS 4-10 Moderate /LPF (0-3)
[2019-12-05 03:18] LABS: BACTERIA-REFLEX >30 Many /HPF (None Seen); URINE RBC >20 Many /HPF (0-2); URINE WBC-REFLEX 0-5 Rare /HPF (0-5)
[2019-12-05 03:19] LABS: AMORPHOUS URATES Moderate /LPF (None Seen)
[2019-12-05 04:43] VITALS: BP 116/57
[2019-12-05 07:26] LABS: PROTIME 208.3 Seconds (9.20-11.50)
[2019-12-05 07:34] LABS: INR > 18.0
[2019-12-05 11:26] VITALS: BP 98/55
--- NOTE | 2019-12-05 12:24 | 2DMMODE ---
[place] [address] 2 D/M-MODE ECHOCARDIOGRAM Name: MATHIEU DUVALL Indira Room: [address] IN [facility]#: [id number] Admission: 12/04/19 Attend Phys: Mitchel Cowan, Discharge: Date of : 36 Date of Service: 12/05/19 1223 Report #: [id number] THIS REPORT FOR: cc: FAM - No family physician/PCP FAM - No family physician/PCP Kadeem Zee MD [facility] ~ APPROVED REPORT Study performed: 12/05/2019 10:56:55 EXAM: Comprehensive 2D, Doppler, and color-flow Echocardiogram Patient Location: In-Patient Room #: [facility] Status: routine BSA: 2.51 HR: 82 bpm BP: 116/57 mmHg Rhythm: NSR Other Information Study Quality: Good Indications Dyspnea 2D Dimensions IVSd: 13.18 (7-11mm) LVOT Diam: 21.18 (18-24mm) LVDd: 44.01 mm PWd: 12.30 (7-11mm) Ascending Ao: 35.95 (22-36mm) LVDs: 26.62 (25-40mm) Aortic Root: 33.57 mm Volumes Left Atrial Volume (Systole) LA ESV Index: 35.80 mL/m2 Aortic Valve AoV Peak Renzo.: 3.26 m/s AO Peak Gr.: 42.49 mmHg LVOT Max P.02 mmHg AO Mean Gr.: 26.78 mmHg LVOT Mean P.54 mmHg LVOT Max V: 0.87 m/s AO V2 VTI: 61.64 cm LVOT Mean V: 0.58 m/s JERICA (VTI): 1.04 cm2 LVOT V1 VTI: 18.17 [place] [address] 2 D/M-MODE ECHOCARDIOGRAM Name: MATHIEU DUVALL Room: [address]#: [id number] Admission: 12/04/19 Attend Phys: Mitchel Cowan, Discharge: Date of : 38 Date of Service: 12/05/19 1223 Report #: [id number] Mitral Valve MV Decel. Time: 240.48 ms MV PHT: 69.74 ms MVA (PHT): 3.15 cm2 TDI Medial E' Renzo.: 0.10 m/s Lateral E' Renzo.: 0.12 m/s Pulmonary Valve PV Peak Renzo.: 0.97 m/s PV Peak Gr.: 3.79 mmHg Tricuspid Valve RAP Estimate: 5.00 mmHg TR Peak Gr.: 40.86 mmHg RVSP: 45.00 mmHg PA Pressure: 45.00 mmHg Left Ventricle The left ventricle is normal size. There is normal LV segmental wall motion. Mild concentric left ventricular hypertrophy. Left ventricular systolic function is normal. The left ventricular ejection fraction is within the normal range. LVEF is 55-60%. This study is not technically sufficient to allow evaluation of the LV diastolic function due to atrial fibrillation. Right Ventricle Right ventricle is mildly dilated. The right ventricular systolic function is normal. Atria Left atrium is mildly dilated. Right atrium is at the upper limits of normal. Aortic Valve Moderate aortic valve sclerosis. No aortic regurgitation is present. Moderate aortic stenosis. Mitral Valve Moderate mitral annular calcification. Mild mitral regurgitation. No evidence of mitral valve stenosis. Tricuspid Valve The tricuspid valve is normal in structure. Mild tricuspid regurgitation. Moderate pulmonary hypertension[place] [address] 2 D/M-MODE ECHOCARDIOGRAM Name: MATHIEU DUVALL Indira Room: [address]#: [id number] Admission: 12/04/19 Attend Phys: Mitchel Cowan, Discharge: Date of : 38 Date of Service: 12/05/19 1223 Report #: [id number] The pulmonary valve is normal in structure. Trace pulmonic regurgitation. Great Vessels The aortic root is normal in size. IVC is normal in size and collapses >50% with inspiration. Pericardium There is no pericardial effusion. <Conclusion> The left ventricle is normal size. Mild concentric left ventricular hypertrophy. Left ventricular systolic function is normal. The left ventricular ejection fraction is within the normal range. LVEF is 55-60%. This study is not technically sufficient to allow evaluation of the LV diastolic function due to atrial fibrillation. Right ventricle is mildly dilated. Left atrium is mildly dilated. Right atrium is at the upper limits of normal. Moderate aortic valve sclerosis. No aortic regurgitation is present. Moderate aortic stenosis. Moderate mitral annular calcification. Mild mitral regurgitation. No evidence of mitral valve stenosis. The tricuspid valve is normal in structure. Mild tricuspid regurgitation. Moderate pulmonary hypertension. IVC is normal in size and collapses >50% with inspiration. There is no pericardial effusion. There is normal LV segmental wall motion. <ELECTRONICALLY SIGNED> By: Kadeem Zee MD, FACC 12/05/19 1223 1223 122 Kadeem Zee MD, FACC /INF
--- NOTE | 2019-12-05 13:57 | EKG ---
[place] [address] ELECTROCARDIOGRAM REPORT Name: MATHIEU DUVALL Room: [address] IN [facility]#: [id number] Admission: 12/04/19 Attend Phys: Mitchel Cowan, Discharge: Date of : 36 Date of Service: 12/04/19 1530 Report #: [id number] THIS REPORT FOR: cc: FAM - No family physician/PCP FAM - No family physician/PCP Kadeem Zee MD [facility] THIS REPORT FOR: //name// [facility] ED Test Date: 2019-12-04 Test Time: 15:30:54 Pat Name: MATHIEU DUVALL Department: Room: [address] Gender: M Coatings Inspector: [facility] : 1940 Requested By: Mitchel Cowan Order Number: [id number] Reading MD: Kadeem Zee Measurements Intervals [place] Rate: 87 P: VA: QRS: 25 QRSD: 87 T: 57 QT: 365 QTc: 439 Interpretive Statements Atrial fibrillation Low voltage, extremity leads Compared to ECG 02/05/2019 17:49:18 Low QRS voltage now present Ventricular premature complex(es) no longer present Myocardial infarct finding no longer present T-wave abnormality no longer present Electronically Signed On 12-05-2019 9:55:56 MOTOR DRIVER by Kadeem Zee [email or web address] <ELECTRONICALLY SIGNED> By: Kadeem Zee MD, [facility] 12/05/19 0955 1530 1530 Kadeem Zee MD, [facility] /EPI
[2019-12-05 16:53] VITALS: BP 107/57
[2019-12-05 20:07] VITALS: BP 107/50
[2019-12-06] VITALS: BP 129/67
[2019-12-06 04:00] VITALS: BP 131/68
[2019-12-06 05:43] LABS: ABSOLUTE BASOPHILS 0.1 thou/uL (0.0-0.2); ABSOLUTE EOSINOPHILS 0.1 thou/uL (0.0-0.7); ABSOLUTE MONOCYTES 1.1 thou/uL (0.0-1.2); ABSOLUTE NEUTROPHILS 7.8 thou/uL (1.6-8.1); BASOPHILS 1.2 %; EOSINOPHILS 1.4 %; HEMATOCRIT 25.1 % (42.0-52.0); HEMOGLOBIN 7.4 gm/dL (14.0-18.0); LYMPHOCYTES 9.4 %; MCH 18.4 pg (26.0-34.0); MCHC 29.3 g/dL (28.0-37.0); MCV 62.9 fL (80.0-100.0); MONOCYTES 11.3 %; NUCLEATED RBCS 3 /100WBC; PLATELET COUNT* 217 thou/uL (150-400); POLYS 76.7 %; RBC 3.99 mil/uL (4.50-6.00); RDW-CV 20.1 % (10.5-14.5); WBC 10.1 thou/uL (4.0-11.0)
[2019-12-06 05:53] LABS: CREATININE 2.8 mg/dL (0.6-1.3); POTASSIUM 4.7 mmol/L (3.5-5.1)
[2019-12-06 05:55] LABS: PROTIME 42.2 Seconds (9.20-11.50)
[2019-12-06 05:59] LABS: INR 4.3
[2019-12-06 07:00] LABS: HYPOCHROMASIA 3+; MICROCYTES 2+; OVALOCYTES 2+; PLATELET ESTIMATE ADEQUATE; POLYCHROMASIA Occasional
[2019-12-06 07:02] LABS: ANISOCYTOSIS 2+; POIKILOCYTOSIS 2+
[2019-12-06 08:28] VITALS: BP 138/72
[2019-12-06 12:23] VITALS: BP 128/64
[2019-12-06 16:17] VITALS: BP 123/67
[2019-12-06 20:15] VITALS: BP 113/54
[2019-12-07 00:17] VITALS: BP 123/72
[2019-12-07 04:30] VITALS: BP 131/73
[2019-12-07 05:27] LABS: PROTIME 24.5 Seconds (9.20-11.50)
[2019-12-07 05:35] LABS: CALCIUM 7.9 mg/dL (8.5-10.1); CREATININE 2.5 mg/dL (0.6-1.3); MAGNESIUM 2.4 mg/dL (1.8-2.4); POTASSIUM 4.8 mmol/L (3.5-5.1)
[2019-12-07 05:48] LABS: INR 2.5
[2019-12-07 20:41] VITALS: BP 124/71
[2019-12-08 04:45] LABS: INR 2.7; PROTIME 26.3 Seconds (9.20-11.50)
[2019-12-08 04:50] LABS: CREATININE 2.1 mg/dL (0.6-1.3); MAGNESIUM 2.3 mg/dL (1.8-2.4); POTASSIUM 4.9 mmol/L (3.5-5.1)
[2019-12-08 21:00] VITALS: BP 138/80
[2019-12-09] VITALS: BP 132/71
[2019-12-09 05:12] LABS: CALCIUM 7.8 mg/dL (8.5-10.1); CREATININE 1.8 mg/dL (0.6-1.3); MAGNESIUM 2.1 mg/dL (1.8-2.4); POTASSIUM 4.3 mmol/L (3.5-5.1)
[2019-12-09 05:14] LABS: INR 2.3; PROTIME 23.1 Seconds (9.20-11.50)
[2019-12-09 08:20] VITALS: BP 138/65
[2019-12-09 15:53] VITALS: BP 135/77
[2019-12-09 21:00] VITALS: BP 130/56
[2019-12-10 03:30] VITALS: BP 137/76
[2019-12-10 04:36] LABS: CALCIUM 7.7 mg/dL (8.5-10.1); CREATININE 1.9 mg/dL (0.6-1.3); MAGNESIUM 2.2 mg/dL (1.8-2.4)
[2019-12-10 04:54] LABS: POTASSIUM 4.9 mmol/L (3.5-5.1)
[2019-12-10 07:48] VITALS: BP 145/87
[2019-12-10 10:41] LABS: BE -2.4 mmol/L (-2 to +3); PCO2 42.3 mmHg (35.0-45.0); PO2 103.6 mmHg (75.0-100.0); pH 7.354 (7.340-7.450)
[2019-12-10 20:35] VITALS: BP 134/76
[2019-12-11 06:17] LABS: HEMATOCRIT 26.9 % (42.0-52.0); HEMOGLOBIN 7.9 gm/dL (14.0-18.0); MCH 19.6 pg (26.0-34.0); MCHC 29.3 g/dL (28.0-37.0); MCV 66.9 fL (80.0-100.0); MPV 8.6 fl. (7.2-11.1); RBC 4.02 mil/uL (4.50-6.00); RDW-CV 20.9 % (10.5-14.5)
[2019-12-11 06:31] LABS: INR 2.3; PROTIME 23.1 Seconds (9.20-11.50)
[2019-12-11 06:35] LABS: ALBUMIN 3.1 g/dL (3.4-5.0); CALCIUM 7.9 mg/dL (8.5-10.1); CREATININE 1.9 mg/dL (0.6-1.3); POTASSIUM 4.8 mmol/L (3.5-5.1); TOTAL BILIRUBIN 0.6 mg/dL (<0.1-1.0); TOTAL PROTEIN 7.2 g/dL (6.4-8.2)
[2019-12-11 09:41] VITALS: BP 138/72
[2019-12-11 16:00] VITALS: BP 146/58
[2019-12-11 19:47] VITALS: BP 132/78
[2019-12-12 04:55] LABS: INR 2.1; PROTIME 21.4 Seconds (9.20-11.50)
[2019-12-12 08:57] VITALS: BP 112/67
--- NOTE | 2019-12-12 10:24 | CON ---
[address] [address] CONSULTATION Name: MATHIEU DUVALL Indira Room: [address] IN .R.#: [id number] Admission: 12/04/19 Attend Phys: Mitchel Cowan MD Discharge: Date of : 36 Report #: [id number] THIS REPORT FOR: //name// cc: TRENA Marshall family physician/PCP TRENA Marshall family physician/PCP ~ THIS REPORT FOR: //name// CC: TRENA physician/PCP Mitchel Cowan DATE OF SERVICE: 12/05/2019 NEPHROLOGY CONSULTATION CONSULTING PHYSICIAN: Mitchel Cowan MD REASON FOR NEPHROLOGY CONSULTATION: Acute kidney injury on chronic kidney disease stage 3. REASON FOR ADMISSION: Nausea, vomiting, shortness of breath, diarrhea. HISTORY OF PRESENT ILLNESS: This is an 79-year-old male who is hard of hearing, not a very good historian but has past medical history of diabetes type 2, hypertension, atrial fibrillation, GERD who came in because of worsening shortness of breath for the past several days along with nausea and vomiting as well as some diarrhea and incontinence to stool. His potassium was 5.8 on arrival, his creatinine was 3.0 on arrival, his baseline creatinine is 1.55 and 1.6. At home, in addition to other medications, he takes losartan, potassium as well as Lasix. He was given a couple of liters of IV fluids. Creatinine has improved to 2.8 today. Potassium is down to 5.5. He is n.p.o. currently. He is still having dry heaving. He is not sure if he is taking NSAIDs or not. It is not on his home medication list. In addition to above, he also has evidence of hematuria and his INR is greater than 18. He takes Coumadin for atrial fibrillation. ALLERGIES: No known allergies. REVIEW OF SYSTEMS: As mentioned in the history of present illness, otherwise limited because he is not a very good historian. HOME MEDICATIONS: Include: 1. Keppra. 2. Atorvastatin. 3. Pantoprazole. 4. Coumadin. 5. [place] [address] CONSULTATION Name: MATHIEU DUVALL Room: [address]#: [id number] Admission: 12/04/19 Attend Phys: Mitchel Cowan MD Discharge: Date of : 38 Report #: [id number] 6. Potassium chloride 20 mEq twice a day. 7. Losartan 50 mg once a day. 8. Lasix 40 mg twice a day. 9. Diltiazem. 10. Metformin 1000 mg b.i.d. 11. Insulin detemir. 12. Insulin lispro. 13. Melatonin. PAST MEDICAL AND SURGICAL HISTORY: Includes: 1. Diabetes type 2. 2. Chronic kidney disease stage 3. Baseline creatinine 1.5-1.6. 3. Hypertension. 4. Seizures. 5. Drake's palsy. 6. Dyslipidemia. 7. He is deaf in right ear. 8. Palpitations. 9. Tonsillectomy. 10. Vasectomy. 11. Hernia repair. 12. Cataract surgery. 13. Gallbladder drain. 14. Pancreatitis. 15. Cholecystectomy. 16. Atrial fibrillation. FAMILY HISTORY: Family history of diabetes according to the patient's chart. SOCIAL HISTORY: Lives at home with his daughter. Does not smoke or drink alcohol or use illicit drugs. PHYSICAL EXAMINATION: VITAL SIGNS: His blood pressure was 116/57, pulse ox was on 3 liters of oxygen via nasal cannula 98%, temperature 36.7, pulse rate was 82, respiratory rate was 16. GENERAL: He is awake, alert and oriented x 3. HEAD AND EYES: Atraumatic, normocephalic. Normal conjunctivae. EARS, NOSE, AND THROAT: Normal ears and nose. Mucous membranes are dry. NECK: There is no JVD. CHEST: Shows bilaterally diminished breath sounds anteriorly, but there are no crackles anteriorly. No wheezing anteriorly. CARDIOVASCULAR: S1, S2 normal. No murmurs heard. ABDOMEN: Soft. It is obese, otherwise nondistended, nontender. Bowel sounds are decreased. EXTREMITIES: Lower extremities: He has chronic venous [place] [address] CONSULTATION Name: MATHIEU DUVALL Indira Room: [address] IN [facility]#: [id number] Admission: 12/04/19 Attend Phys: Mitchel Cowan MD Discharge: Date of : 38 Report #: [id number] is no pitting edema that I could see and the skin over his lower extremities is very dry and scaling present. NEUROLOGICAL FUNCTION: He has generalized weakness, but otherwise is able to move all his extremities. PSYCHIATRIC: Mood colvin, he seems to be normal. LABORATORY DATA: WBC is 8.8, hemoglobin is 7.8, platelet count is 244. Sodium is 139, potassium is 5.5 down from 5.8, creatinine is 2.8 down from 3.0. Iron saturation is 4%. INR is greater than 18. Other labs are reviewed. IMAGING: Chest x-ray was reviewed. ASSESSMENT: 1. Acute kidney injury on chronic kidney disease stage 3. Baseline creatinine is 1.5-1.6 and creatinine 3.0 on admission. Acute kidney injury in the setting of intravascular volume depletion, nausea, vomiting, use of Lasix and losartan at home. INR is greater than 18. He also has evidence of gross hematuria and there is a possibility of Coumadin nephropathy as well. Renal imaging is pending. 2. Hyperkalemia in the setting of acute renal insufficiency, potassium supplementation as well as ARB use. 3. Non-nephrotic range proteinuria, 2.26 grams, likely because of diabetes. 4. Nausea and vomiting. Etiology is not clear. Primary team is looking into that. 5. Iron deficiency anemia. He also has gross hematuria and supratherapeutic INR. 6. History of diabetes type 2. Metformin is on hold and primary team is managing his diabetes. 7. His ejection fraction back in January 2019 was 60-65% with RVSP of 60 mmHg. 8. Presumably interstitial atypical pneumonia, which is being treated with antibiotics as per primary team. 9. History of peripheral arterial disease. 10. History of atrial fibrillation, on Coumadin, which is currently on hold because of supratherapeutic INR. 11. Lactic acidosis. Lactate was 3.0 when he came in and 3.2 on most recent check yesterday evening. PLAN: 1. To me, he actually looks dry, normal saline 75 mL an hour. If he gets started on a diet, this should be a low-potassium diet. 2. So far, the renal function is improving with IV fluids. 3. We will hold off on doing serological workup right now. His urine should be checked once his INR has been reversed, which primary team is working on. 4. We will order renal imaging as well. 5. I have ordered IV iron for his iron deficiency anemia. Iron saturation is 4%. [place] [address] CONSULTATION Name: MATHIEU DUVALL Room: [address] IN ..#: [id number] Admission: 12/04/19 Attend Phys: Mitchel Cowan MD Discharge: Date of : 38 Report #: [id number] Try to maintain strict I's and O's. He has a Borrero catheter. Thank you for this consultation. We will continue to follow with you. Discussed with the patient and the patient's nurse. <ELECTRONICALLY SIGNED> By: Martina Valentin MD 12/12/19 1024 0822 [id number] Valentin MD /nt
[2019-12-13 06:00] LABS: CALCIUM 7.8 mg/dL (8.5-10.1); CREATININE 1.5 mg/dL (0.6-1.3); POTASSIUM 3.9 mmol/L (3.5-5.1)
[2019-12-13 06:03] LABS: INR 1.9; PROTIME 19.5 Seconds (9.20-11.50)
[2019-12-13 08:39] VITALS: BP 129/64
[2019-12-13 16:03] VITALS: BP 134/68
[2019-12-13 20:00] VITALS: BP 118/66
[2019-12-14 04:11] LABS: INR 1.9; PROTIME 19.2 Seconds (9.20-11.50)
[2019-12-14 04:12] LABS: CALCIUM 7.4 mg/dL (8.5-10.1); CREATININE 1.5 mg/dL (0.6-1.3); POTASSIUM 3.8 mmol/L (3.5-5.1)
[2019-12-14 08:00] VITALS: BP 135/63
[2019-12-14 21:25] VITALS: BP 146/86
[2019-12-15 04:17] LABS: PROTIME 20.3 Seconds (9.20-11.50)
[2019-12-15 04:24] LABS: CALCIUM 7.6 mg/dL (8.5-10.1); CREATININE 1.4 mg/dL (0.6-1.3); MAGNESIUM 2.1 mg/dL (1.8-2.4); POTASSIUM 4.1 mmol/L (3.5-5.1)
[2019-12-15 08:00] VITALS: BP 120/72
[2019-12-15 15:21] VITALS: BP 128/70
[2019-12-15 20:45] VITALS: BP 125/72
[2019-12-16 04:07] LABS: PROTIME 20.1 Seconds (9.20-11.50)
[2019-12-16 04:14] LABS: CALCIUM 7.8 mg/dL (8.5-10.1); CREATININE 1.3 mg/dL (0.6-1.3); MAGNESIUM 2.2 mg/dL (1.8-2.4); POTASSIUM 4.3 mmol/L (3.5-5.1)
[2019-12-16 08:00] VITALS: BP 122/68
[2019-12-16 16:39] VITALS: BP 121/78
[2019-12-17 04:09] LABS: INR 2.2; PROTIME 21.5 Seconds (9.20-11.50)
[2019-12-17 08:01] VITALS: BP 147/77
[2019-12-17 08:15] LABS: CALCIUM 7.8 mg/dL (8.5-10.1); CREATININE 1.4 mg/dL (0.6-1.3); MAGNESIUM 2.2 mg/dL (1.8-2.4); POTASSIUM 4.3 mmol/L (3.5-5.1)
[2019-12-17 16:06] VITALS: BP 141/73
[2019-12-18 03:55] LABS: ALBUMIN 2.7 g/dL (3.4-5.0); CREATININE 1.3 mg/dL (0.6-1.3); MAGNESIUM 2.1 mg/dL (1.8-2.4); TOTAL BILIRUBIN 0.6 mg/dL (<0.1-1.0); TOTAL PROTEIN 6.7 g/dL (6.4-8.2)
[2019-12-18 08:10] VITALS: BP 133/74
[2019-12-18 16:00] VITALS: BP 166/56
[2019-12-18 22:15] VITALS: BP 143/82
[2019-12-19] VITALS: BP 127/68
[2019-12-19 03:53] LABS: CALCIUM 8.2 mg/dL (8.5-10.1); CREATININE 1.3 mg/dL (0.6-1.3)
[2019-12-19 04:00] VITALS: BP 127/65
[2019-12-19 04:09] LABS: INR 2.4; PROTIME 23.6 Seconds (9.20-11.50)
[2019-12-19 09:22] LABS: ABSOLUTE BASOPHILS 0.1 thou/uL (0.0-0.2); ABSOLUTE EOSINOPHILS 0.3 thou/uL (0.0-0.7); ABSOLUTE MONOCYTES 0.5 thou/uL (0.0-1.2); ABSOLUTE NEUTROPHILS 3.3 thou/uL (1.6-8.1); BASOPHILS 2.6 %; EOSINOPHILS 5.1 %; HEMATOCRIT 29.9 % (42.0-52.0); HEMOGLOBIN 8.9 gm/dL (14.0-18.0); LYMPHOCYTES 19.4 %; MCH 20.8 pg (26.0-34.0); MCHC 29.7 g/dL (28.0-37.0); MCV 70.1 fL (80.0-100.0); MONOCYTES 9.9 %; NUCLEATED RBCS 0 /100WBC; PLATELET COUNT* 171 thou/uL (150-400); RBC 4.27 mil/uL (4.50-6.00); RDW-CV 32.7 % (10.5-14.5); WBC 5.3 thou/uL (4.0-11.0)
[2019-12-19 16:32] VITALS: BP 130/79
[2019-12-19 20:45] VITALS: BP 124/65
[2019-12-20 03:35] LABS: ABSOLUTE BASOPHILS 0.2 thou/uL (0.0-0.2); ABSOLUTE EOSINOPHILS 0.3 thou/uL (0.0-0.7); ABSOLUTE MONOCYTES 0.7 thou/uL (0.0-1.2); ABSOLUTE NEUTROPHILS 3.7 thou/uL (1.6-8.1); BASOPHILS 2.7 %; HEMATOCRIT 30.7 % (42.0-52.0); HEMOGLOBIN 9.2 gm/dL (14.0-18.0); MCHC 29.9 g/dL (28.0-37.0); MCV 70.2 fL (80.0-100.0); MONOCYTES 11.6 %; MPV 9.2 fl. (7.2-11.1); NUCLEATED RBCS 0 /100WBC; PLATELET COUNT* 176 thou/uL (150-400); POLYS 63.7 %; RBC 4.38 mil/uL (4.50-6.00); RDW-CV 32.8 % (10.5-14.5); WBC 5.9 thou/uL (4.0-11.0)
[2019-12-20 03:46] LABS: INR 2.5; PROTIME 24.4 Seconds (9.20-11.50)
[2019-12-20 03:57] LABS: ALBUMIN 2.8 g/dL (3.4-5.0); CALCIUM 8.2 mg/dL (8.5-10.1); CREATININE 1.4 mg/dL (0.6-1.3); POTASSIUM 4.3 mmol/L (3.5-5.1); TOTAL BILIRUBIN 0.6 mg/dL (<0.1-1.0); TOTAL PROTEIN 6.2 g/dL (6.4-8.2)
[2019-12-20 05:38] LABS: PLATELET ESTIMATE ADEQUATE
[2019-12-20 05:39] LABS: HYPOCHROMASIA 2+; MICROCYTES 2+; OVALOCYTES 1+; POLYCHROMASIA 1+; SCHISTOCYTES Occasional
[2019-12-20 05:40] LABS: ANISOCYTOSIS 2+; POIKILOCYTOSIS 2+
[2019-12-20 07:50] VITALS: BP 116/71
[2019-12-20] MEDS ORDERED: HUMALOG100 UNIT/1 SUBQ (08:23)
[2019-12-20] MEDS ORDERED: LANTUS100 UNIT/M SUBQ (08:23)
[2019-12-20] MEDS ORDERED: COUMADIN 5 MG TA5 M1 PO (08:23)
[2019-12-20] MEDS ORDERED: SPIRONOLACTONE25 M1 PO (08:25)
[2019-12-20 15:58] VITALS: BP 123/68
[2019-12-20 20:00] VITALS: BP 133/79
[2019-12-20 21:36] VITALS: BP 133/79
[2019-12-21 03:51] LABS: INR 2.7; PROTIME 26.8 Seconds (9.20-11.50)
== END 2019-12-21 14:45 | DRG 177 ==
LOC: M.ERS 15:15 → M.TBA-ER 18:05 → M.ORTHSURG 18:05 → M.2W 18:05 → M.ORTHSURG 12-07 19:04
PROVIDERS: Internal Medicine; Personal Emergency Response Attendant; ADMIT Internal Medicine
DX: J69.0 Pneumonitis due to inhalation of food and vomit (principal); N17.0 Acute kidney failure with tubular necrosis; I50.33 Acute on chronic diastolic (congestive) heart failure; D68.59 Other primary thrombophilia; E87.2 Acidosis; Z68.41 Body mass index [BMI] 40.0-44.9, adult; N18.4 Chronic kidney disease, stage 4 (severe); K76.6 Portal hypertension; I13.0 Hypertensive heart and chronic kidney disease with heart failure and stage 1 through stage 4 chronic kidney disease, or unspecified chronic kidney disease; J84.9 Interstitial pulmonary disease, unspecified; E78.00 Pure hypercholesterolemia, unspecified; I27.20 Pulmonary hypertension, unspecified; K21.9 Gastro-esophageal reflux disease without esophagitis; E11.22 Type 2 diabetes mellitus with diabetic chronic kidney disease; E78.5 Hyperlipidemia, unspecified; H91.91 Unspecified hearing loss, right ear; E87.5 Hyperkalemia; D50.9 Iron deficiency anemia, unspecified; E11.51 Type 2 diabetes mellitus with diabetic peripheral angiopathy without gangrene; I25.10 Atherosclerotic heart disease of native coronary artery without angina pectoris; E66.9 Obesity, unspecified; N50.89 Other specified disorders of the male genital organs; I35.0 Nonrheumatic aortic (valve) stenosis; R11.2 Nausea with vomiting, unspecified; E11.21 Type 2 diabetes mellitus with diabetic nephropathy; I87.8 Other specified disorders of veins; K74.60 Unspecified cirrhosis of liver; E11.649 Type 2 diabetes mellitus with hypoglycemia without coma; T50.905A Adverse effect of unspecified drugs, medicaments and biological substances, initial encounter; Z98.52 Vasectomy status; Z98.49 Cataract extraction status, unspecified eye; Z90.49 Acquired absence of other specified parts of digestive tract; Z79.899 Other long term (current) drug therapy; Z79.82 Long term (current) use of aspirin; Z79.01 Long term (current) use of anticoagulants; Z79.84 Long term (current) use of oral hypoglycemic drugs; Z83.3 Family history of diabetes mellitus; Z79.4 Long term (current) use of insulin; Z95.828 Presence of other vascular implants and grafts; Z79.2 Long term (current) use of antibiotics; Z79.51 Long term (current) use of inhaled steroids; Y92.89 Other specified places as the place of occurrence of the external cause; Z87.891 Personal history of nicotine dependence